=== PATIENT | female | born 1955 | race Caucasian/White ===

== ENCOUNTER 2020-02-01 17:55 | Emergency (ER) | payer MEDICARE, OTHER ==
[~2020-02-01] VITALS: Ht 160 cm; Wt 92.6 kg
--- NOTE | 2020-02-01 18:24 | NUR ---
PT STATES PALPITATIONS STARTING FRIDAY, THEN CONTINUING ON FRIDAY. PT DENIES CP WITH PALPITATIONS. PT DENIES AND PALPITATIONS CURRENTLY. PT SENT FROM [facility] FOR ABNORMAL EKG. PT PLACED ON MONITOR AND EKG COMPLETED. NO DISTRESS. AWAITING ERMD ASSESSMENT.
--- NOTE | 2020-02-01 19:01 | NUR ---
REPORT GIVEN TO ANA ARBOLEDA.
--- NOTE | 2020-02-01 19:03 | NUR ---
CARE ASSUMED OF PT AT THIS TIME.
[2020-02-01 19:16] LABS: BASOPHILS # (AUTO) 0.06 x10^3/uL (0-0.1); BASOPHILS % (AUTO) 1 % (0-1); EOSINOPHILS # (AUTO) 0.35 x10^3/uL (0-0.4); EOSINOPHILS % (AUTO) 4 % (1-7); LYMPHOCYTES # (AUTO) 1.58 x10^3/uL (1-3.4); LYMPHOCYTES % (AUTO) 20 % (22-44); MD NO; MEAN CORPUSCULAR HEMOGLOBIN 29.3 pg (27.0-34.8); MEAN CORPUSCULAR HGB CONC 33.7 g/dL (32.4-35.8); MONOCYTES # (AUTO) 0.65 x10^3/uL (0.2-0.8); MONOCYTES % (AUTO) 8 % (2-9); NEUTROPHILS # (AUTO) 5.28 x10^3/uL (1.8-6.8); NEUTROPHILS % (AUTO) 67 % (42-75); PLATELET COUNT 242 x10^3/uL (130-400); RED BLOOD COUNT 4.51 x10^6/uL (3.82-5.3); RED CELL DISTRIBUTION WIDTH 13.9 % (9.6-15.2)
[2020-02-01 19:25] LABS: ALBUMIN 3.6 g/dL (3.4-5.0); ANION GAP 7 mmol/L (5-15); CALCIUM 8.8 mg/dL (8.5-10.1); CHLORIDE 112 mmol/L (98-107); CREATININE 0.71 mg/dL (0.55-1.02)
[2020-02-01 19:28] LABS: TROPONIN I < 0.015 ng/mL (0.000-0.045)
--- NOTE | 2020-02-01 19:32 | NUR ---
INTRODUCED SELF TO PT. PT RESTING WITH AT BEDSIDE. ON DOOR CAPTAIN WITH HR IN THE 60S. NO COMPLAINTS. AWAITING LABS. WILL CONTINUE TO MONITOR.
[2020-02-01] MEDS ORDERED: ASPIRIN 325 MG TABLET ONE (20:57)
[2020-02-01] MEDS ORDERED: ASPIRIN 81 MG TABLET CHEW PO ONE (21:00)
[2020-02-01] MEDS ORDERED: ASPIRIN 81 MG TABLET CHEW ONE (21:06)
[2020-02-01 21:31] VITALS: BP 147/82
== END 2020-02-01 21:34 | disposition home or self-care (01) ==
LOC: ED 21:10
DX: I49.1 Atrial premature depolarization (principal); R07.9 Chest pain, unspecified; E03.9 Hypothyroidism, unspecified
CPT/HCPCS: 36415; 71045; 80048; 82040; 84439; 84443; 84484; 85025; 93005; 99285

== ENCOUNTER 2020-08-04 15:12 | Emergency (ER) | payer MEDICARE, OTHER ==
[~2020-08-04] VITALS: Ht 160 cm; Wt 94.1 kg
--- NOTE | 2020-08-04 16:11 | NUR ---
THIS IS A 65 YO FEMALE COMING IN WITH C/O WORSENING SOB X [address] MCMANUS FOR AFIB W/RVR, WAS AT [facility] OFFICE EARLIER TODAY. HAD COVID IN MIDDLE OF JUNE. HAS BEEN TAKING A METOPROLOL 50MG BID FOR THE LAST COUPLE OF DAYS. PCP=ABDOULAYE GRIJALVA. ONLY COMPLAINT IS MILD SOB, LUNG SOUNDS CLEAR THROUGHOUT. ALL MONITORING IN PLACE, AFIB WITH RVR WITH HR BETWEEN 150-170, ERP NOTIFIED. A&OX4, VSS, NADN AT THIS TIME, PIV PLACED
[2020-08-04] MEDS ORDERED: DILTIAZEM 5 MG/ML, 5ML ONE ×2 (16:26→18:14)
[2020-08-04] MEDS ORDERED: DILTIAZEM 5 MG/ML, 5ML IVPush STA (16:26)
[2020-08-04] MEDS ORDERED: SODIUM CHLORIDE FLUSH 10ML SYR IVF ONE (16:30)
--- NOTE | 2020-08-04 16:31 | NUR ---
PATIENT MEDICATED PER EMAR, TOLERATED WELL
[2020-08-04 16:59] LABS: ALANINE AMINOTRANSFERASE 84 U/L (12-78); ALBUMIN 3.5 g/dL (3.4-5.0); ANION GAP 5 mmol/L (5-15); CALCIUM 8.7 mg/dL (8.5-10.1); CHLORIDE 114 mmol/L (98-107)
[2020-08-04] MEDS ORDERED: APIXABAN 5 MG TABLET PO ONE (17:00)
[2020-08-04] MEDS ORDERED: DIGOXIN 0.25 MG/ML, 2ML IVPush ONE (17:00)
[2020-08-04] MEDS ORDERED: DILTIAZEM CD 180 MG CAP.ER.24H PO ONE (17:00)
[2020-08-04] MEDS ORDERED: DIGOXIN 0.25 MG/ML, 2ML ONE (17:05)
[2020-08-04] MEDS ORDERED: APIXABAN 5 MG TABLET ONE (17:05)
[2020-08-04 17:07] LABS: BASOPHILS % (AUTO) 1 % (0-1); EOSINOPHILS % (AUTO) 0 % (1-7); LYMPHOCYTES % (AUTO) 8 % (22-44); MEAN CORPUSCULAR HEMOGLOBIN 28.9 pg (27.0-34.8); MEAN CORPUSCULAR HGB CONC 32.6 g/dL (32.4-35.8); MEAN PLATELET VOLUME 8.4 fL (7.4-10.4); MONOCYTES % (AUTO) 5 % (2-9); NEUTROPHILS % (AUTO) 86 % (42-75); PLATELET COUNT 320 x10^3/uL (130-400); RED BLOOD COUNT 4.23 x10^6/uL (3.82-5.3); RED CELL DISTRIBUTION WIDTH 15.2 % (9.6-15.2)
[2020-08-04 17:08] LABS: MD NO
[2020-08-04 17:10] LABS: ALKALINE PHOSPHATASE 106 U/L (45-117); BILIRUBIN,TOTAL 0.6 mg/dL (0.2-1.0); CREATININE 0.88 mg/dL (0.55-1.02); TROPONIN I < 0.015 ng/mL (0.000-0.045)
--- NOTE | 2020-08-04 17:31 | NUR ---
PATIENT MEDICATED PER EMAR, TOLERATED WELL. DENIES FURTHER NEEDS AT THIS TIME. ALL MONITORING IN PLACE. VSS
--- NOTE | 2020-08-04 17:36 | NUR ---
ERP TO ROOM
--- NOTE | 2020-08-04 18:18 | NUR ---
Qi russell in ED - 08/04/20 at 1818 by MELINA ORDERED DINNER TRAY. PATIENT CALM IN BED.
[2020-08-04 18:20] VITALS: BP 123/94
[2020-08-04] MEDS ORDERED: DILTIAZEM 5 MG/ML, 5ML IV ONE (18:30)
--- NOTE | 2020-08-04 18:31 | NUR ---
Patient given discharge instructions and they have confirmed that they understand the instructions. Patient ambulatory with steady gait.
== END 2020-08-04 18:33 | disposition home or self-care (01) ==
LOC: ED 17:02
DX: R07.89 Other chest pain (principal); R06.02 Shortness of breath; E03.9 Hypothyroidism, unspecified; I48.91 Unspecified atrial fibrillation
CPT/HCPCS: 36415; 71045; 80053; 83735; 83880; 84443; 84484; 85025; 93005; 96374; 96375; 96376; 99285; J1160

== ENCOUNTER 2020-08-31 07:04 | Outpatient (CLI) | payer MEDICARE, OTHER ==
[2020-09-01] MEDS ORDERED: FLEC100T PO (10:44)
[2020-09-01] MEDS ORDERED: MOME13HF2 INH (10:44)
[2020-09-01] MEDS ORDERED: FURO-93 PO ×2 (10:44→11:35)
[2020-09-01] MEDS ORDERED: METO25TA91 PO (10:44)
[2020-09-01] MEDS ORDERED: SPIR50TA4 PO (10:44)
[2020-09-01] MEDS ORDERED: APIX5TAB PO (10:44)
[2020-09-01] MEDS ORDERED: LEVO25TA4 PO (10:44)
== END 2020-08-31 23:59 | disposition home or self-care (01) ==
LOC: CVU 07:04
PROVIDERS: ATTEND Registered Nurse
DX: I08.3 Combined rheumatic disorders of mitral, aortic and tricuspid valves (principal); I48.91 Unspecified atrial fibrillation
CPT/HCPCS: 93306

== ENCOUNTER 2020-09-01 10:07 | Day surgery (SDC) | payer MEDICARE, OTHER ==
[~2020-09-01] VITALS: Ht 160 cm; Wt 90.9 kg
[2020-09-01 10:32] VITALS: BP 139/84
[2020-09-01] MEDS ORDERED: MOME13HF2 INH (10:44)
[2020-09-01] MEDS ORDERED: METO25TA91 PO (10:44)
[2020-09-01] MEDS ORDERED: FURO-93 PO ×2 (10:44→11:35)
[2020-09-01] MEDS ORDERED: SPIR50TA4 PO (10:44)
[2020-09-01] MEDS ORDERED: FLEC100T PO (10:44)
[2020-09-01] MEDS ORDERED: LEVO25TA4 PO (10:44)
[2020-09-01] MEDS ORDERED: APIX5TAB PO (10:44)
[2020-09-01] MEDS ORDERED: PROPOFOL 10 MG/ML, 20ML ONE (11:21)
[2020-09-01 11:36] LABS: ANION GAP 7 mmol/L (5-15); CALCIUM 8.9 mg/dL (8.5-10.1); CHLORIDE 114 mmol/L (98-107)
[2020-09-01 11:37] LABS: CREATININE 0.91 mg/dL (0.55-1.02)
== END 2020-09-01 12:55 | disposition home or self-care (01) ==
LOC: CACL 10:07
PROVIDERS: ATTEND Internal Medicine Cardiovascular Disease
DX: I48.91 Unspecified atrial fibrillation (principal); Z79.01 Long term (current) use of anticoagulants; Z79.890 Hormone replacement therapy; Z79.899 Other long term (current) drug therapy; Z88.1 Allergy status to other antibiotic agents
CPT/HCPCS: 36415; 71045; 80048; 92960; J2704

== ENCOUNTER 2020-09-28 06:07 | Day surgery (SDC) | payer MEDICARE, OTHER ==
[~2020-09-28] VITALS: Ht 160 cm; Wt 85.6 kg
[~2020-09-28 06:07] MED LIST: AMIO200T42 PO; APIX5TAB PO; FLEC100T PO; FURO-93 PO; LEVO25TA4 PO; LOSA25TA25 PO; METO-93 PO; METO25TA91 PO; MOME13HF2 INH; SPIR50TA4 PO
[2020-09-28 06:53] VITALS: BP 129/88
[2020-09-28] MEDS ORDERED: AMIO400T5 PO (07:01)
[2020-09-28] MEDS ORDERED: METO-93 PO (07:02)
[2020-09-28] MEDS ORDERED: LEVO50TA5 PO (07:03)
[2020-09-28 07:05] LABS: ANION GAP 7 mmol/L (5-15); CHLORIDE 112 mmol/L (98-107); CREATININE 1.25 mg/dL (0.55-1.02)
[2020-09-28] MEDS ORDERED: PROPOFOL 10 MG/ML, 20ML ONE (07:14)
== END 2020-09-28 08:41 | disposition home or self-care (01) ==
LOC: CACL 06:07
PROVIDERS: ATTEND Internal Medicine Cardiovascular Disease
DX: I48.92 Unspecified atrial flutter (principal); I48.91 Unspecified atrial fibrillation; I42.8 Other cardiomyopathies; Z88.1 Allergy status to other antibiotic agents; Z79.01 Long term (current) use of anticoagulants; Z79.899 Other long term (current) drug therapy; Z72.89 Other problems related to lifestyle; Z82.49 Family history of ischemic heart disease and other diseases of the circulatory system; Z98.890 Other specified postprocedural states
CPT/HCPCS: 36415; 80048; 92960; J2704

== ENCOUNTER → 2020-11-15 | Outpatient (CLI) | payer MEDICARE, OTHER ==
[~2020-11-15] MED LIST changes: +AMIO400T5 PO; +LEVO50TA5 PO
== END | disposition home or self-care (01) ==
LOC: CFH 10:36
PROVIDERS: ATTEND Internal Medicine Cardiovascular Disease
DX: I08.1 Rheumatic disorders of both mitral and tricuspid valves (principal); I48.91 Unspecified atrial fibrillation
CPT/HCPCS: 93306

== ENCOUNTER → 2020-12-26 | Outpatient (CLI) | payer MEDICARE, OTHER ==
[~2020-12-26] MED LIST changes: +REGADENOSON 0.4 MG/5 ML SYRINGE ONE
== END | disposition home or self-care (01) ==
LOC: CFH 07:52
PROVIDERS: ATTEND Internal Medicine Cardiovascular Disease
DX: I42.9 Cardiomyopathy, unspecified (principal)
CPT/HCPCS: 78452; 93017; A9502; J2785

== ENCOUNTER → 2021-01-16 | Outpatient (CLI) | payer MEDICARE, OTHER ==
[~2021-01-16] MED LIST changes: -REGADENOSON 0.4 MG/5 ML SYRINGE ONE
== END | disposition home or self-care (01) ==
LOC: CFH 09:30
PROVIDERS: ATTEND Thoracic Surgery (Cardiothoracic Vascular Surgery)
DX: I48.20 Chronic atrial fibrillation, unspecified (principal); Z98.82 Breast implant status
CPT/HCPCS: 71046

== ENCOUNTER → 2021-01-17 | Outpatient (CLI) | payer MEDICARE, OTHER | END | disposition home or self-care (01) | LOC: CFH 08:58 | PROVIDERS: ATTEND Thoracic Surgery (Cardiothoracic Vascular Surgery) | DX: R91.1 Solitary pulmonary nodule (principal); J43.9 Emphysema, unspecified; J98.4 Other disorders of lung | CPT/HCPCS: 71250 ==

== ENCOUNTER 2021-02-13 10:11 | Emergency (ER) | payer MEDICARE, OTHER ==
[~2021-02-13] VITALS: Ht 160 cm; Wt 89.6 kg
--- NOTE | 2021-02-13 10:19 | NUR ---
NA X1
[2021-02-13 12:08] LABS: BASOPHILS % (AUTO) 1 % (0-1); EOSINOPHILS % (AUTO) 1 % (1-7); LYMPHOCYTES % (AUTO) 9 % (22-44); MD NO; MEAN CORPUSCULAR HEMOGLOBIN 30.5 pg (27.0-34.8); MEAN CORPUSCULAR HGB CONC 33.7 g/dL (32.4-35.8); MEAN PLATELET VOLUME 8.8 fL (7.4-10.4); MONOCYTES % (AUTO) 8 % (2-9); NEUTROPHILS % (AUTO) 81 % (42-75); PLATELET COUNT 258 x10^3/uL (130-400); RED BLOOD COUNT 4.22 x10^6/uL (3.82-5.3); RED CELL DISTRIBUTION WIDTH 15.1 % (9.6-15.2)
[2021-02-13 12:15] LABS: ALBUMIN 3.8 g/dL (3.4-5.0); CHLORIDE 112 mmol/L (98-107); CREATININE 1.18 mg/dL (0.55-1.02)
[2021-02-13 12:16] LABS: ANION GAP 3 mmol/L (5-15)
[2021-02-13 12:20] LABS: TROPONIN I < 0.015 ng/mL (0.000-0.045)
--- NOTE | 2021-02-13 12:34 | NUR ---
treating engineer: pt from lobby to room 17
--- NOTE | 2021-02-13 12:45 | NUR ---
DULL/ACHEY RT CHEST PAIN SINCE 2099 YESTERDAY "BUT I THINK IT'S LUNG RELATED BECAUSE IT HURTS TO BREATHE & DOESN'T FEEL LIKE PREVIOUS HEART-RELATED PAIN", HX A-FIB W "HYBRID MAZE", ABLATION SCHEDULED 03/01 PT WITH STEADY GAIT TO BATHROOM AND TO BED. ATTACHED TO MONITORS. VSS. RUSSELL.
[2021-02-13 12:51] VITALS: BP 140/74
--- NOTE | 2021-02-13 13:23 | NUR ---
Patient given discharge instructions by MD and they have confirmed that they understand the instructions. Patient ambulatory with steady gait. Addendum: 02/13/21 at 1327 by CRUZ Per patient given discharge instructions by and signed and they have confirmed that they understand the instructions. Patient ambulatory with steady gait.
== END 2021-02-13 13:33 | disposition home or self-care (01) ==
LOC: ED 13:19
DX: R07.2 Precordial pain (principal); I48.91 Unspecified atrial fibrillation; I10 Essential (primary) hypertension; E03.9 Hypothyroidism, unspecified; Z88.1 Allergy status to other antibiotic agents
CPT/HCPCS: 36415; 71045; 80048; 82040; 83880; 84484; 85025; 93005; 99285

== ENCOUNTER → 2021-02-27 | Outpatient (CLI) | payer MEDICARE, OTHER | END | disposition home or self-care (01) | LOC: RAD 14:22 | PROVIDERS: ATTEND Thoracic Surgery (Cardiothoracic Vascular Surgery) | DX: Z20.822 Contact with and (suspected) exposure to COVID-19 (principal) | CPT/HCPCS: U0003; U0005 ==

== ENCOUNTER 2021-03-01 06:16 | Observation (INO) | payer MEDICARE, OTHER ==
[~2021-03-01] VITALS: Ht 160 cm; Wt 90.0 kg
[2021-03-01 06:44] VITALS: BP 156/75
[2021-03-01] MEDS ORDERED: SODIUM CHLORIDE 0.9% 1,000 ML IV SCH (07:00)
[2021-03-01 07:27] LABS: BASOPHILS % (AUTO) 1 % (0-1); EOSINOPHILS % (AUTO) 4 % (1-7); LYMPHOCYTES % (AUTO) 18 % (22-44); MEAN CORPUSCULAR HGB CONC 33.4 g/dL (32.4-35.8); MEAN PLATELET VOLUME 7.9 fL (7.4-10.4); MONOCYTES % (AUTO) 7 % (2-9); NEUTROPHILS % (AUTO) 70 % (42-75); PLATELET COUNT 358 x10^3/uL (130-400); RED BLOOD COUNT 4.23 x10^6/uL (3.82-5.3); RED CELL DISTRIBUTION WIDTH 13.7 % (9.6-15.2)
[2021-03-01 07:36] LABS: ANION GAP 6 mmol/L (5-15); CHLORIDE 112 mmol/L (98-107); CREATININE 0.87 mg/dL (0.55-1.02)
[2021-03-01 07:49] LABS: INTERNATIONAL NORMALIZED RATIO 0.97 (0.93-1.1); PROTHROMBIN TIME 10.4 Seconds (9.6-11.5)
[2021-03-01] MEDS ORDERED: MIDAZOLAM 1 MG/ML, 2ML ONE (07:56)
[2021-03-01] MEDS ORDERED: FENTANYL PF 250 MCG/5ML ONE (07:56)
[2021-03-01] MEDS ORDERED: ROCURONIUM 10MG/ML,5ML ONE (08:00)
[2021-03-01] MEDS ORDERED: HEPARIN 1,000 UNITS/ML, 10ML ONE ×2 (08:00)
[2021-03-01] MEDS ORDERED: SUCCINYLCHOLINE 20 MG/ML, 10ML ONE (08:00)
[2021-03-01] MEDS ORDERED: DEXAMETHASONE 4 MG/ML, 1ML ONE (08:00)
[2021-03-01] MEDS ORDERED: PROPOFOL 10 MG/ML, 20ML ONE (08:00)
[2021-03-01] MEDS ORDERED: ONDANSETRON 2MG/ML, 2ML ONE (08:00)
[2021-03-01] MEDS ORDERED: EPHEDRINE 50 MG/ML, 1ML IM PRN (08:30)
[2021-03-01] MEDS ORDERED: FENTANYL PF 100 MCG/2ML IV PRN (08:30)
[2021-03-01] MEDS ORDERED: LABETALOL 5MG/ML, 20ML IV PRN (08:30)
[2021-03-01] MEDS ORDERED: DIPHENHYDRAMINE 50 MG/ML, 1ML IVPush PRN (08:30)
[2021-03-01] MEDS ORDERED: ACETAMINOPHEN 325 MG TABLET PO PRN ×2 (08:30→11:00)
[2021-03-01] MEDS ORDERED: PROMETHAZINE 25 MG/ML, 1ML IVPush PRN (08:30)
[2021-03-01] MEDS ORDERED: MEPERIDINE/PF 25MG/0.5ML IVPush PRN (08:30)
[2021-03-01] MEDS ORDERED: OXYcodone 5 MG/5 ML ORAL.SOL UDC PO PRN (08:30)
[2021-03-01] MEDS ORDERED: ONDANSETRON 2MG/ML, 2ML IVPush PRN ×2 (08:30→11:00)
[2021-03-01] MEDS ORDERED: DIAZEPAM 5 MG/ML, 2ML IVPush PRN (08:30)
[2021-03-01] MEDS ORDERED: EPHEDRINE 50 MG/ML, 1ML IVPush PRN (08:30)
[2021-03-01] MEDS ORDERED: morphine SULFATE 10 MG/ML, 1ML IVPush PRN (08:30)
[2021-03-01] MEDS ORDERED: APIXABAN 5 MG TABLET ONE (08:59)
[2021-03-01] MEDS ORDERED: LIDOCAINE 2%, 20ML ONE (09:18)
[2021-03-01] MEDS: APIXABAN 5 MG TABLET PO SCH ×5 (10:50→20:36)
[2021-03-01] MEDS ORDERED: ZOLPIDEM 5MG TABLET PO PRN (11:00)
[2021-03-01 14:00] VITALS: BP 120/73
[2021-03-01 15:20] VITALS: BP 108/68
[2021-03-01 20:31] VITALS: BP 112/68
[2021-03-01] MEDS: COLCHICINE 0.6 MG CAPSULE PO SCH (20:36)
[2021-03-02 01:39] VITALS: BP 102/65
[2021-03-02] MEDS ORDERED: LEVOTHYROXINE 50 MCG TABLET PO SCH (06:00)
[2021-03-02 08:45] VITALS: BP 111/65
[2021-03-02] MEDS ORDERED: SPIRONOLACTONE 50 MG TABLET PO SCH (09:00)
[2021-03-02] MEDS ORDERED: METOPROLOL SUCCINATE 50 MG TAB.ER.24H PO SCH (09:00)
[2021-03-02] MEDS ORDERED: FUROSEMIDE 20 MG TABLET PO SCH (09:00)
[2021-03-02] MEDS ORDERED: LOSARTAN 25MG TABLET PO SCH (09:00)
[2021-03-02] MEDS: COLCHICINE 0.6 MG CAPSULE PO SCH (09:11)
[2021-03-02] MEDS: APIXABAN 5 MG TABLET PO SCH (09:11)
[2021-03-02] MEDS ORDERED: AMIO200T42 PO (13:31)
[2021-03-02] MEDS ORDERED: LOSA25TA25 PO (13:31)
[2021-03-02] MEDS ORDERED: FURO-93 PO (13:31)
[2021-03-02] MEDS ORDERED: COLC0.6C3 PO (13:32)
[2021-03-02 14:40] VITALS: BP 118/77
== END 2021-03-02 15:51 | disposition home or self-care (01) ==
LOC: CACL 06:16 → ORIP 10:46 → 5SO 11:51
PROVIDERS: ADMIT Internal Medicine Cardiovascular Disease; ATTEND Internal Medicine Cardiovascular Disease
DX: I48.91 Unspecified atrial fibrillation (principal); I48.92 Unspecified atrial flutter; I10 Essential (primary) hypertension; I42.9 Cardiomyopathy, unspecified; Z79.01 Long term (current) use of anticoagulants; Z79.899 Other long term (current) drug therapy
CPT/HCPCS: 36415; 71046; 80048; 84443; 85025; 85347; 85610; 85730; 93005; 93308; 93321; 93325; 93613; 93656; 93662; C1730; C1732; C1759; C1766; C1769; C1893; C1894; G0378; J0330; J1100; J1644; J2250; J2405; J2704; J3010; J3490

== ENCOUNTER → 2021-03-22 | Outpatient (CLI) | payer MEDICARE, OTHER ==
[~2021-03-22] MED LIST changes: +COLC0.6C3 PO
== END | disposition home or self-care (01) ==
LOC: PETCFH 13:42
PROVIDERS: ATTEND Internal Medicine
DX: R91.1 Solitary pulmonary nodule (principal); R91.8 Other nonspecific abnormal finding of lung field
CPT/HCPCS: 78815; A9552